=== PATIENT | male | born 1975 | race Caucasian/White ===

== ENCOUNTER 2023-11-29 07:33 | Outpatient (CLI) | payer BC, SELFPAY | END 2023-11-29 07:34 | disposition home or self-care (01) | LOC: NFLDREF 11-30 07:35 | PROVIDERS: PCP Internal Medicine; Referring Provider Internal Medicine; Visit Provider Internal Medicine | DX: E78.5 Hyperlipidemia, unspecified (principal); Z12.5 Encounter for screening for malignant neoplasm of prostate | CPT/HCPCS: 80053; 80061; G0103 ==

== ENCOUNTER 2024-01-04 10:21 | Outpatient (CLI) | payer BC, SELFPAY ==
--- NOTE | 2024-01-04 11:07 | W.ANESCHARGE ---
Anesthesia Charges Start Date/Time Anesthesia Start Date: 01/04/24 Anesthesia Start Time: 11:01 Stop Date/Time Anesthesia Stop Date: 01/04/24 Anesthesia Stop Time: 11:30
--- NOTE | 2024-01-04 11:29 | W.ANESCHARGE ---
Anesthesia Charges Start Date/Time Anesthesia Start Date: 01/04/24 Anesthesia Start Time: 11:01 Stop Date/Time Anesthesia Stop Date: 01/04/24 Anesthesia Stop Time: 11:30
== END 2024-01-04 10:22 | disposition home or self-care (01) ==
LOC: OP CLINIC 10:21
PROVIDERS: PCP Internal Medicine; Visit Provider Internal Medicine
DX: Z12.11 Encounter for screening for malignant neoplasm of colon (principal); K63.5 Polyp of colon
CPT/HCPCS: 00811; 45385; 88305; J2704

== ENCOUNTER 2024-12-30 07:45 | Outpatient (CLI) | payer BC, SELFPAY | END 2024-12-30 07:46 | disposition home or self-care (01) | LOC: NFLDREF 01-02 03:32 | PROVIDERS: PCP Internal Medicine; Referring Provider Internal Medicine; Visit Provider Internal Medicine | DX: E78.5 Hyperlipidemia, unspecified (principal); R03.0 Elevated blood-pressure reading, without diagnosis of hypertension; Z12.5 Encounter for screening for malignant neoplasm of prostate; Z13.9 Encounter for screening, unspecified | CPT/HCPCS: 80053; 80061; G0103 ==